=== PATIENT | male | born 1985 | race Caucasian/White ===

== ENCOUNTER 2024-02-09 16:20 | Emergency (ER) | payer BC, SELFPAY ==
[2024-02-09 16:34] VITALS: BP 153/99; PULSE 69; RESP 16; TEMP 36.4; O2SAT 100
--- NOTE | 2024-02-09 16:51 | ED.EYEPROB ---
HPI - Eye Problem General Chief complaint: Eye Problems Stated complaint: Eye Problem Time Seen by Provider: 02/09/24 16:51 Source: patient Mode of arrival: ambulatory Limitations: no limitations History of Present Illness HPI Narrative: 38-year-old male presented for complaint of right eye pain, onset today. He states he wears contact lenses and sleep in them. When he woke this morning he had eye pain and remove the contact lens. He states the pain has progressed throughout the day. Endorses frequent tearing. Rates pain 2/10. Denies foreign body or known injury. Denies itching or purulent drainage. Endorses chronic light sensitivity. chief complaint: eye pain Related Data Home Medications Medication Instructions Recorded Confirmed allopurinol 300 mg tablet mg 02/09/24 Allergies Allergy/AdvReac Type Severity Reaction Status Date / Time No Known Allergies Allergy Verified 02/09/24 16:26 Review of Systems Review of Systems: CONSTITUTIONAL: Denies body aches, fever, chills EYES:Endorses pain to right eye , photophobia Denies visual changes, swelling, redness, FB sensation ENT: Denies rhinorrhea, congestion, sore throat, or otalgia. CARDIOVASCULAR: Denies chest pain, palpitations RESPIRATORY: Denies cough or dyspnea. GASTROINTESTINAL: Denies abdominal pain, nausea, vomiting, or diarrhea. SKIN: Denies rash, itching, or wounds. MUSCULOSKELETAL: Denies back pain, joint pain, or myalgia. NEUROLOGIC: Denies headache, numbness, tingling, or weakness. All systems reviewed & are unremarkable except as noted in HPI and below PMFSH Comments At time of signature, I have reviewed and agree with nursing past medical, surgical, social and family history unless otherwise noted. Please see nursing chart for further information. There is no relevant family history pertinent to the presenting complaint Exam Narrative: GENERAL: Well-appearing HEAD: Normocephalic, atraumatic. EYES: Wood's lamp exam shows corneal abrasion over the pupil at 2 o'clock position. No conjunctival injection, no purulent drainage. No eye lid swelling. PERRLA EOMI. Lid eversion Shows no foreign body. ENT: Mucous membranes pink and moist. No rhinorrhea. ABDOMEN: Soft, nontender, nondistended SKIN: Warm, dry, no rash. Normal skin turgor. NEURO: No focal deficits. Alert and oriented x3 PSYCH: Normal affect. Eyes: Eyes/upper lids images: 1. location of uptake Course Course Emergency Course: Patient is aware of diagnosis, understands and agrees to treatment plan. Anticipatory guidance given. Patient agrees to follow-up as directed and is aware of reasons to seek care at the emergency department. Portions of this record may have been created with voice recognition software Level of Care: Express Care Visit Procedures FB Removal Eye Foreign Body #1: Foreign Body Removal Date: 02/09/24 Location: eye (R) Topical anesthetic used: tetracaine Evidence of corneal penetration: Yes (corneal abrasion) Procedure performed under: other (arroyo lamp) Patient tolerated procedure: well and no complications Foreign Body Removal Narrative: right eye was anesthetized with 1 drop of tetracaine and anesthesia was achieved. Corneal abrasion noted at 2o'clock position over pupil. Lid was everted and examined for foreign body. No foreign body identified with Arroyo lamp. The eye was flushed with eye wash. Pt tolerated procedure well. MDM - Eye Problem MDM Narrative Medical decision making narrative: Discussed physical exam findings consistent with corneal abrasion vs ulcer. provided with eye referrals. Advised supportive measures and signs/symptoms to go to the ER. Pt is appropriate for outpt treatment and f/u. Differential Diagnosis Differential diagnosis: Likely corneal abrasion, conjunctivitis, acute iritis, corneal ulcer and other Discharge Plan Discharge Clinical Impression: Cor
== END 2024-02-09 17:13 | disposition home or self-care (01) ==
PROVIDERS: Emergency Provider Nurse Practitioner Family
DX: S05.01XA Injury of conjunctiva and corneal abrasion without foreign body, right eye, initial encounter (principal); X58.XXXA Exposure to other specified factors, initial encounter
CPT/HCPCS: 99213; A9270; G0463